=== PATIENT | female | born 1980 | race Caucasian/White ===

== ENCOUNTER 2016-05-27 14:00 | Emergency (ER) | payer OTHER ==
[2016-05-27 14:35] VITALS: BMI 44.6
[2016-05-27 15:31] LABS: LEUKOCYTES/URINE NEG (NEGATIVE); NITRITE/URINE NEG (NEGATIVE); RBC/URINE 0-2 (0-5); URINE OCCULT BLOOD NEG (NEG/TRACE); WBC/URINE 0-2 (0-5)
[2016-05-27] MEDS ORDERED: MORPHINE 4 MG/ML INJECTION IV ONE (16:54)
[2016-05-27] MEDS ORDERED: SODIUM CHLORIDE 0.9% 10 ML FLUSH FLUSH PRN (16:54)
[2016-05-27] MEDS ORDERED: ONDANSETRON HCL 4 MG/2 ML VIAL IV ONE (16:54)
[2016-05-27] MEDS ORDERED: NS 1,000 ML IV ONE (16:54)
--- NOTE | 2016-05-27 16:56 | EDPRACDOC ---
- General Information Mode Of Arrival: Car - History of Present Illness Onset: yesterday Pain Location: Reports: LLQ, Flank Pain Context: Reports: Spontaneous Pain Severity: Moderate Pain Quality: Reports: Aching Pain Radiation: Reports: Flank Last Menstrual Period: May 03 : No Control Method: Reports: BTL Adult Abdominal History: Denies: Urolithiasis, Bowel Obstruction Female Abdominal History: Denies: UTI, Ectopic, PID, Urolithiasis Modifying Factors: improves with: Nothing Female Associated Signs & Symptoms: Reports: Nausea Oral Intake: Normal Urinary Output: Normal <Mary Lou Jamil - Last Filed: 05/27/16 18:14> <Maritza Carrizales - Last Filed: 05/27/16 18:28> - General Information Chief Complaint: Abdominal Pain Stated Complaint: LLQ PAIN WITH PAIN AROUND TO BACK Time Seen by Provider: 05/27/16 16:47 Home Medications: Home Medications Gabapentin 600 mg PO QHS 05/27/16 Hydrocodone Bit/Acetaminophen [Lortab 5/325] 1 tab PO Q4-6H PRN #15 tab Metformin HCl 500 mg PO QHS 05/27/16 Ondansetron HCl [Zofran] 4 mg PO Q8H PRN #15 tab 05/27/16 Allergies/Adverse Reactions: Allergies Allergy/AdvReac Type Severity Reaction Status Date / Time No Known Allergies Allergy Verified 05/27/16 14:37 - History of Present Illness HPI: Pt c/o LLQ pain radiating to back x 2 days. C/o nausea. Denies fever, cough, congestion, cp, sob, changes in bowel or bladder, rash, vaginal bleeding or discharge. (Mary Lou Jamil) ED Past Medical History - History Reviewed Yes Nurses notes reviewed and agree except as marked - Patient Medical History GI/ History: Denies: Urinary Tract Infection Systemic History: Reports: Diabetes. Denies: Cancer Surgical History: Reports: Cholecystectomy - Social Medical History Smoking Status: Heavy tobacco smoker (5 or more cigarettes/day or daily pipe/ cigar) ETOH: None Substance Abuse: None <Mary Lou Jamil - Last Filed: 05/27/16 18:14> EDM Review of Systems - Review of Systems Constitutional: No Symptoms Reported. negative: Fever, Chills, Weakness, Fatigue, Loss of Appetite Ears: No Symptoms Reported. negative: Pain, Hearing Loss, Drainage, Ear Pulling Throat: No Symptoms Reported. negative: Pain, Swelling Nose: No Symptoms Reported. negative: Congestion, Bleeding, Discharge, Injection, Swelling, Deformity, Ecchymosis, Tender, Abrasion, Laceration Mouth: No Symptoms Reported. negative: Pain, Drooling Respiratory: No Symptoms Reported. negative: Cough, Brassy Cough, Barky Cough, Shortness of Breath, Wheezing, Hemoptysis Cardiovascular: No Symptoms Reported. negative: Chest Pain, Palpitations, Syncope, Edema, Orthopnea, PND, Skin Mottling, Cyanosis Gastrointestinal: Nausea, Pain Genitourinary: No Symptoms Reported. negative: Dysuria, Hematuria, Frequency, Discharge, Bleeding, Testicular Pain, Neurological: No Symptoms Reported. negative: Headache, Dizziness, Seizure, Numbness, Weakness, Speech Difficulty, Gait Difficulty Musculoskeletal: Back Integumentary: No Symptoms Reported. negative: Itching, Rash, Bruising, Wound Allergic/Immunologic: No Symptoms Reported. negative: Hives, Itching Hematologic: No Symptoms Reported. negative: Lymphadenopathy, Easy Bruising, Easy Bleeding Psychiatric: No Symptoms Reported. negative: Anxiety, Depression, Hallucinations, Insomnia, Suicidal, Other <Mary Lou Jamil - Last Filed: 05/27/16 18:14> - Physical Exam Constitutional: Alert Oriented to: Time, Person, Place - HEENT Head: Normal ( normocephalic) Eye Exam: Normal (PERRL, EOMI, Sclera white) Neck: Normal (FROM, trachea at midline) - Respiratory/Cardiovascular Respiratory: Normal - CTA (BBS clear to auscultation without adventitious sounds ) Cardiovascular: Normal (RRR without murmur, gallop or rub) - GI Auscultation: Normal (NABS) Palpation: Normal (Soft,No rebound or guarding, non distended) Tenderness: Mild, LLQ - Bladder: Normal External: Normal Vagina: Discharge Cervix: Normal Uterus: Normal size Adnexa: Bilateral: Normal - Musculoskeletal Back: Normal (Non-Tender) Extremities: Normal (Normal tone, Pulses 2+ No cyanosis or edema, FROM) - Integumentary Skin: Normal, Warm, Dry Lymphatics: Normal (no adenopathy) - Neurologic Memory Impaired: Normal Motor Function: Normal (Normal tone, Pulses 2+ No cyanosis or edema, FROM) Mood Description: Normal Perception: Normal <Mary Lou Jamil - Last Filed: 05/27/16 18:14> - Differential Diagnosis Diverticulitis, Gastroenteritis, Urolithiasis, UTI, Other (pyelonephritis) - Results 05/27/16 17:20 05/27/16 17:20 - Diagnostic Imaging Abdomen Image interpreted by: Radiologist <Mary Lou Jamil - Last Filed: 05/27/16 18:14> - Re-evaluation Re-evaluation 1 Re-evaluation Time: 18:28 (IMPROVED) - Results 05/27/16 17:20 05/27/16 17:20 <Maritza Carrizales - Last Filed: 05/27/16 18:28> - Results WBC 11.1 xk/uL (3.8-10.8) H 05/27/16 17:20 RBC 4.92 xM/uL (4.20-5.40) 05/27/16 17:20 Hgb 14.2 g/dL (12.0-16.0) 05/27/16 17:20 Hct 43.2 % (36-47) 05/27/16 17:20 MCV 88 fL (81-99) 05/27/16 17:20 MCH 28.8 pg (27-32) 05/27/16 17:20 MCHC 32.7 g/dl (33-36) L 05/27/16 17:20 RDW 14.8 % (11.5-14.5) H 05/27/16 17:20 Plt Count 222 xk/uL (130-400) 05/27/16 17:20 MPV 9.9 fL (7.4-10.4) 05/27/16 17:20 Neut % (Auto) 59.4 % (45-76) 05/27/16 17:20 Lymph % (Auto) 31.3 % (17-44) 05/27/16 17:20 [place] % (Auto) 5.7 % (3-10) 05/27/16 17:20 Eos % (Auto) 2.6 % (0-5) 05/27/16 17:20 Baso % (Auto) 1.0 % (0-2) 05/27/16 17:20 Absolute Neuts (auto) 6.55 xk/uL (1.7-8.2) 05/27/16 17:20 Absolute Lymphs (auto) 3.44 xk/uL (0.65-4.75) 05/27/16 17:20 Sodium 142 mEq/L (137-146) 05/27/16 17:20 Potassium 4.7 mEq/L (3.5-5.1) 05/27/16 17:20 Chloride 105 mEq/L (98-107) 05/27/16 17:20 Carbon Dioxide 26 mMOL/L (22-33) 05/27/16 17:20 Anion Gap 16 mEq/L (8-16) 05/27/16 17:20 BUN 16 MG/DL (7-17) 05/27/16 17:20 Creatinine 0.70 MG/DL (0.52-1.04) 05/27/16 17:20 Estimated GFR (MDRD) > 60 mL/min (>=60) 05/27/16 17:20 Glucose 100 MG/DL (70-99) H 05/27/16 17:20 Calculated Osmolality 274 MOs/Kg (270-290) 05/27/16 17:20 Calcium 9.2 MG/DL (8.4-10.2) 05/27/16 17:20 Total Bilirubin 0.8 MG/DL (0.2-1.3) 05/27/16 17:20 AST 22 IU/L (14-36) 05/27/16 17:20 ALT 35 IU/L (9-52) 05/27/16 17:20 Alkaline Phosphatase 75 IU/L (38-126) 05/27/16 17:20 Total Protein 7.8 G/DL (6.3-8.2) 05/27/16 17:20 Albumin 4.4 G/DL (3.5-5.0) 05/27/16 17:20 Lipase 52 U/L (23-300) 05/27/16 17:20 Urine Color Yellow 05/27/16 14:38 Urine Clarity Clear 05/27/16 14:38 Urine pH 5.0 (5.0-8.0) 05/27/16 14:38 Ur Specific [place] 1.025 (1.003-1.035) 05/27/16 14:38 Urine Protein Neg (NEG/TRACE) 05/27/16 14:38 Urine Glucose (UA) Neg (NEGATIVE) 05/27/16 14:38 Urine Ketones Neg (NEGATIVE) 05/27/16 14:38 Urine Occult Blood Neg (NEG/TRACE) 05/27/16 14:38 Urine Nitrite Neg (NEGATIVE) 05/27/16 14:38 Urine Bilirubin Neg (NEGATIVE) 05/27/16 14:38 Urine Urobilinogen <2.0 MG/DL (0-1) 05/27/16 14:38 Ur Leukocyte Esterase Neg (NEGATIVE) 05/27/16 14:38 Urine RBC 0-2 (0-5) 05/27/16 14:38 Urine WBC 0-2 (0-5) 05/27/16 14:38 Ur Epithelial Cells 2+ 05/27/16 14:38 Urine Mucus Occ (NEG/OCC) 05/27/16 14:38 Urine Test Neg (NEGATIVE) 05/27/16 14:38 Microbiology 05/27/16 18:09 Trichomonas [place] - Final Vaginal 05/27/16 18:09 JAVID Preparation - Final Vaginal Lab Results 05/27/16 05/27/16 05/27/16 17:20 17:20 14:38 WBC 11.1 H RBC 4.92 Hgb 14.2 Hct 43.2 MCV 88 MCH 28.8 MCHC 32.7 L RDW 14.8 H Plt Count 222 MPV 9.9 Neut % (Auto) 59.4 Lymph % (Auto) 31.3 [place] % (Auto) 5.7 Eos % (Auto) 2.6 Baso % (Auto) 1.0 Absolute Neuts (auto) 6.55 Absolute Lymphs (auto) 3.44 Sodium 142 Potassium 4.7 Chloride 105 Carbon Dioxide 26 Anion Gap 16 BUN 16 Creatinine 0.70 Estimated GFR (MDRD) > 60 Glucose 100 H Calculated Osmolality 274 Calcium 9.2 Total Bilirubin 0.8 AST 22 ALT 35 Alkaline Phosphatase 75 Total Protein 7.8 Albumin 4.4 Lipase 52 Urine Color Urine Clarity Urine pH Ur Specific [place] Urine Protein Urine Glucose (UA) Urine Ketones Urine Occult Blood Urine Nitrite Urine Bilirubin Urine Urobilinogen Ur Leukocyte Esterase Urine RBC Urine WBC Ur Epithelial Cells Urine Mucus Urine Test Neg 05/27/16 14:38 WBC RBC Hgb Hct MCV MCH MCHC RDW Plt Count MPV Neut % (Auto) Lymph % (Auto) [place] % (Auto) Eos % (Auto) Baso % (Auto) Absolute Neuts (auto) Absolute Lymphs (auto) Sodium Potassium Chloride Carbon Dioxide Anion Gap BUN Creatinine Estimated GFR (MDRD) Glucose Calculated Osmolality Calcium Total Bilirubin AST ALT Alkaline Phosphatase Total Protein Albumin Lipase Urine Color Yellow Urine Clarity Clear Urine pH 5.0 Ur Specific [place] 1.025 Urine Protein Neg Urine Glucose (UA) Neg Urine Ketones Neg Urine Occult Blood Neg Urine Nitrite Neg Urine Bilirubin Neg Urine Urobilinogen <2.0 Ur Leukocyte Esterase Neg Urine RBC 0-2 Urine WBC 0-2 Ur Epithelial Cells 2+ Urine Mucus Occ Urine Test (Mary Lou Jamil) (Maritza Carrizales) - Diagnostic Imaging Abdomen 05/27/16 17:51 FINDINGS: Lower chest: Clear lung bases. Normal heart size. Hepatobiliary: Normal liver. Prior cholecystectomy. Pancreas: Normal. Spleen: Normal. Adrenals/Urinary Tract: Normal adrenal glands. Normal kidneys. No urolithiasis or obstructive uropathy. Normal bladder. Stomach/Bowel: No bowel wall thickening or dilatation. Normal appendix. No pneumatosis, pneumoperitoneum or portal venous gas. No abdominal pelvic free fluid. Vascular/Lymphatic: Normal caliber abdominal aorta. No lymphadenopathy. Reproductive: Normal uterus. No adnexal mass. Other: No fluid collection or hematoma. Musculoskeletal: No acute osseous abnormality. No lytic or sclerotic osseous lesion. IMPRESSION: No acute abdominal or pelvic pathology. (Mary Lou Jamil) - Additional Information final disposition given to Dr Carrizales at 1815 (Mary Lou Jamil) - Departure Disposition: Home Education/Counseling Given To: Patient Education/Counseling Given Regarding: Diagnosis, Treatment, Follow Up <Mary Lou Jamil - Last Filed: 05/27/16 18:14> Decision Time to Discharge: 18:28 - Departure Yes I personally saw and evaluated the patient. <Maritza Carrizales - Last Filed: 05/27/16 18:28> - Departure Condition: Good Final Diagnosis: LLQ pain Instructions: Acute Abdominal Pain (ED), Non-pharmacological Pain Management Therapies for Adults (GEN) Referrals: Rashida Almeida DO [Primary Care Provider] - One Week Prescriptions: Hydrocodone Bit/Acetaminophen [Lortab 5/325] 1 tab PO Q4-6H PRN #15 tab PRN Reason: Pain Ondansetron HCl [Zofran] 4 mg PO Q8H PRN #15 tab PRN Reason: Nausea/Vomiting Additional Instructions: Return for worse or different symptoms.
[2016-05-27 17:38] LABS: AUTOMATED EOSINOPHIL 2.6 % (0-5); AUTOMATED LYMPH 31.3 % (17-44); AUTOMATED MONOCYTE 5.7 % (3-10); AUTOMATED NEUTROPHIL 59.4 % (45-76); MPV 9.9 fL (7.4-10.4)
--- NOTE | 2016-05-27 17:46 | DIRPT ---
CLINICAL DATA: Left lower quadrant pain. Left leg pain. EXAM: CT ABDOMEN AND PELVIS WITHOUT CONTRAST TECHNIQUE: Multidetector CT imaging of the abdomen and pelvis was performed following the standard protocol without IV contrast. COMPARISON: 05/13/2015 FINDINGS: Lower chest: Clear lung bases. Normal heart size. Hepatobiliary: Normal liver. Prior cholecystectomy. Pancreas: Normal. Spleen: Normal. Adrenals/Urinary Tract: Normal adrenal glands. Normal kidneys. No urolithiasis or obstructive uropathy. Normal bladder. Stomach/Bowel: No bowel wall thickening or dilatation. Normal appendix. No pneumatosis, pneumoperitoneum or portal venous gas. No abdominal pelvic free fluid. Vascular/Lymphatic: Normal caliber abdominal aorta. No lymphadenopathy. Reproductive: Normal uterus. No adnexal mass. Other: No fluid collection or hematoma. Musculoskeletal: No acute osseous abnormality. No lytic or sclerotic osseous lesion. IMPRESSION: No acute abdominal or pelvic pathology. Electronically Signed By: Megan Salcido On: 05/27/2016 17:43
[2016-05-27 17:49] LABS: BLOOD UREA NITROGEN 16 MG/DL (7-17); CALCIUM 9.2 MG/DL (8.4-10.2); CALCULATED OSMOLALITY 274 MOs/Kg (270-290); CHLORIDE 105 mEq/L (98-107); GLUCOSE 100 MG/DL (70-99); SODIUM LEVEL 142 mEq/L (137-146); TOTAL PROTEIN 7.8 G/DL (6.3-8.2)
[2016-05-27 18:53] VITALS: BP 149/83; PULSE 81; TEMP 98.4
[2016-05-30 05:38] LABS: CHLAMY BY NUCLEIC ACID AMP Negative (Negative)
[2016-05-30 07:15] LABS: GC BY NUCLEIC ACID AMP Negative (Negative)
== END 2016-05-27 18:51 | disposition home or self-care (01) ==
LOC: ED 14:00
DX: R10.32 Left lower quadrant pain (principal)
CPT/HCPCS: 36415; 74176; 80053; 81001; 81025; 83690; 85025; 87210; 87220; 87491; 87591; 96361; 96374; 96375; 99283; J2270; J2405